=== PATIENT | female | born 1965 | race Caucasian/White ===

== ENCOUNTER 2023-05-08 10:10 | Emergency (ER) | payer OTHER ==
[~2023-05-08] VITALS: Ht 165.1 cm; Wt 62.1 kg
[2023-05-08 11:22] LABS: HEMATOCRIT 36.3 % (36.0-45.00); HEMOGLOBIN 12.2 g/dL (12.0-15.00); MEAN CELL VOLUME 86.2 fL (80.00-100.00); MEAN CORPUSCULAR HGB CONC 33.6 g/dl (32.0-36.0); PLATELET COUNT 195 K/uL (150-450); RED BLOOD COUNT 4.21 M/uL (4.00-6.00); RED CELL DISTRIBUTION WIDTH 14.1 % (11.5-14.5)
== END 2023-05-08 14:50 | disposition home or self-care (01) ==
LOC: ER 10:10
PROVIDERS: Emergency Medicine
DX: N93.8 Other specified abnormal uterine and vaginal bleeding (principal)

== ENCOUNTER → 2023-10-26 | Day surgery (SDC) | payer OTHER ==
[~2023-10-26] VITALS: Ht 165.1 cm; Wt 59.4 kg
[~2023-10-26] MED LIST: MORPHINE SULFATE 4 MG/ML VIAL IV PRN; PROMETHAZINE HCL 50 MG/ML AMPUL IM ONE
== END | disposition home or self-care (01) ==
LOC: CIR.AMB 10-23 10:45 → ADM 10-23 10:45 → CIR.AMB 06:43
PROVIDERS: ATTEND Obstetrics & Gynecology
DX: N95.0 Postmenopausal bleeding (principal); N84.0 Polyp of corpus uteri; E03.9 Hypothyroidism, unspecified